=== PATIENT | male | born 1980 | race Hispanic/Latino ===

== ENCOUNTER 2016-10-08 03:25 | Emergency (ER) | payer MEDICAID ==
[2016-10-08 03:40] VITALS: BP 130/72; PULSE 90; TEMP 98.9; O2SAT 98
[2016-10-08] MEDS ORDERED: Sodium Chloride 0.9% 500 ML IV ONE (04:02)
[2016-10-08 04:54] LABS: BASO # 0.1 K/uL (0.0-0.2); BASO % 0.5 % (0.0-2.0); EOS # 0.1 K/uL (0.0-0.7); EOS % 0.7 % (0.0-4.0); HEMOGLOBIN 13.7 g/dL (12.0-18.0); MEAN CELL VOLUME 89.2 fL (80.0-94.0); MEAN CORPUSCULAR HEMOGLOBIN 29.8 pg (27.0-31.0); MEAN CORPUSCULAR HGB CONC 33.4 g/dL (33.0-37.0); MEAN PLATELET VOLUME 8.3 fL (7.2-11.7); MONO # 1.1 K/uL (0.0-0.8); MONO % 7.3 % (0.0-10.0); NEUT # 12.5 K/uL (1.8-7.0); NEUT % 84.5 % (50.0-75.0); PLATELET COUNT 197 K/uL (130-400); RBC 4.61 Mil/uL (4.40-5.90); RED CELL DISTRIBUTION WIDTH 12.9 % (11.5-14.5); WHITE BLOOD COUNT 14.8 K/uL (4.8-10.8)
[2016-10-08 04:58] LABS: ALBUMIN 3.7 g/dL (3.5-5.0)
[2016-10-08 05:00] LABS: GFR AFRICAN-AMERICAN > 60; GFR NON-AFRICAN AMERICAN > 60
[2016-10-08 05:01] LABS: ALB/GLOB RATIO 1.2 (1.0-2.1); ALT/SGPT 26 U/L (21-72); AST/SGOT 34 U/L (17-59); BLOOD UREA NITROGEN 14 mg/dL (9-20)
[2016-10-08 05:02] LABS: CALCIUM 8.2 mg/dl (8.6-10.4)
--- NOTE | 2016-10-08 05:03 | C.PDOC ---
History Of Present Illness 35 year old male presents to the ED with complaints of dizziness and feeling hot just prior to arrival. Patient states apartment does not have an air conditioner and despite opening windows, still feels lightheaded which prompted visit. He denies any palpitations, chest pain, or SOB. Time Seen by Provider: 10/08/16 03:45 Chief Complaint (Nursing): Dizziness/Lightheaded History Per: Patient History/Exam Limitations: no limitations Onset/Duration Of Symptoms: Hrs Current Symptoms Are (Timing): Still Present Fall Associated With With Symptoms: No Recent travel outside of the [place]: No Past Medical History Reviewed: Historical Data, Nursing Documentation, Vital Signs Vital Signs: Last Vital Signs Temp 98.9 F 10/08/16 03:34 Pulse 90 10/08/16 03:34 Resp 16 10/08/16 03:34 BP 130/72 10/08/16 03:34 Pulse Ox 98 10/08/16 06:43 - Medical History PMH: Anxiety, Bipolar Disorder - [facility] Procedures GROUP PSYCHOTHERAPY (09/12/15) INDIVID PSYCHOTHERAP NEC (04/29/13) INDIVIDUAL PSYCHOTHERAPY, BEHAVIORAL (09/12/15) INJECT/INFUSE NEC (01/22/14) NEUROLEPTIC THERAPY (04/29/13) OTHER GROUP THERAPY (04/29/13) Family History: States: Unknown Family Hx - Social History Hx Tobacco Use: No Hx Alcohol Use: No Hx Substance Use: No - Immunization History Hx Tetanus Toxoid Vaccination: No Hx Influenza Vaccination: No Hx Pneumococcal Vaccination: No Review Of Systems Constitutional: Negative for: Fever, Chills Cardiovascular: Negative for: Chest Pain, Palpitations Respiratory: Negative for: Cough, Shortness of Breath Gastrointestinal: Negative for: Nausea, Vomiting, Abdominal Pain, Diarrhea Neurological: Positive for: Dizziness, Other (lightheadedness ) Physical Exam - Physical Exam Appears: Non-toxic, No Acute Distress, Other (patient appears drowsy ) Skin: Warm, Dry Eye(s): bilateral: Normal Inspection, PERRL, EOMI Ear(s): Bilateral: Normal Oral Mucosa: Moist Throat: Erythema, No Exudate Neck: Supple Chest: Symmetrical, No Deformity Cardiovascular: Rhythm Regular Respiratory: Normal Breath Sounds, No Rales, No Rhonchi, No Wheezing Gastrointestinal/Abdominal: Soft, No Tenderness, No Distention, No Guarding, No Rebound Neurological/Psych: Oriented x3 ED Course And Treatment - Laboratory Results Result Diagrams: 10/08/16 04:40 10/08/16 04:40 O2 Sat by Pulse Oximetry: 98 (room air ) Pulse Ox Interpretation: Normal Progress Note: CBC and CMP were ordered. Patient hydrated with fluids. Patient is resting comfortably and in no acute distresss upon re-evaluation.Feels better. Labs reviewed with slightly elevated WBC, but pt has no URI or UTI sx, sore throat or abd pain. Pt instructed to follow up in clinic and return precautions were given Reassessment Condition: Improved Disposition Counseled Patient/Family Regarding: Diagnosis, Need For Followup - Disposition Referrals: at [facility] [Outside] Disposition: HOME/ ROUTINE Disposition Time: 06:33 Condition: STABLE Additional Instructions: PLease keep cool , Buy a fan or AC unit Drink fluids/ cold water Return to ER if worse Instructions: Dizziness (ED) - Clinical Impression Clinical Impression: Dizziness - Scribe Statement The provider has reviewed the documentation as recorded by the Scribmickey Ordaz All medical record entries made by the Tamiribmickey were at my direction and personally dictated by me. I have reviewed the chart and agree that the record accurately reflects my personal performance of the history, physical exam, medical decision making, and the department course for this patient. I have also personally directed, reviewed, and agree with the discharge instructions and disposition.
[2016-10-08 06:39] LABS: BANDS 1 % (0-2); EOSINOPHIL 1 % (0-4); LYMPHOCYTE 7 % (20-40); MONOCYTE 9 % (0-10); NEUTROPHIL 82 % (50-75); PLATELET ESTIMATE NORMAL (NORMAL); TOTAL CELLS COUNTED 100
[2016-10-08 06:47] VITALS: RESP 17
== END 2016-10-08 06:47 | disposition home or self-care (01) ==
LOC: C.ER 03:25
DX: R42 Dizziness and giddiness (principal)
CPT/HCPCS: 80053; 85025; 99285; J7040

== ENCOUNTER 2016-12-19 15:55 | Emergency (ER) | payer MEDICAID, OTHER ==
[2016-12-19 16:12] VITALS: BP 129/84; PULSE 90; RESP 18; TEMP 98.9; O2SAT 98
--- NOTE | 2016-12-19 16:33 | C.PDOC ---
History Of Present Illness 35 y/o male presents to ED requesting refill of Abilify and [place]. Pt states that he recently moved to [place], and has not followed up with a psychiatrist yet. Notes that he has not taken his meds for the last 2 weeks. Pt states that he is not able to sleep well at night. Denies SI, HI, or any physical complaints. Time Seen by Provider: 12/19/16 16:30 Chief Complaint (Nursing): Med Refill History Per: Patient History/Exam Limitations: no limitations Onset/Duration Of Symptoms: Days Current Symptoms Are (Timing): Still Present Severity: None Pain Scale Rating Of: 0 Recent travel outside of the [place]: No Additional History Per: Patient Past Medical History Reviewed: Historical Data, Nursing Documentation, Vital Signs Vital Signs: Last Vital Signs Temp 98.9 F 12/19/16 16:08 Pulse 90 12/19/16 16:08 Resp 18 12/19/16 16:08 BP 129/84 12/19/16 16:08 Pulse Ox 98 12/19/16 20:53 - Medical History PMH: Anxiety, Bipolar Disorder - [facility] Procedures GROUP PSYCHOTHERAPY (09/12/15) INDIVID PSYCHOTHERAP NEC (04/29/13) INDIVIDUAL PSYCHOTHERAPY, BEHAVIORAL (09/12/15) INJECT/INFUSE NEC (01/22/14) NEUROLEPTIC THERAPY (04/29/13) OTHER GROUP THERAPY (04/29/13) Family History: States: Unknown Family Hx - Social History Hx Tobacco Use: No Hx Alcohol Use: No Hx Substance Use: No - Immunization History Hx Tetanus Toxoid Vaccination: No Hx Influenza Vaccination: No Hx Pneumococcal Vaccination: No Review Of Systems Except As Marked, All Systems Reviewed And Found Negative. Constitutional: Positive for: Other (not able to sleep). Negative for: Fever, Chills Cardiovascular: Negative for: Chest Pain, Palpitations Respiratory: Negative for: Shortness of Breath Psych: Negative for: Suicidal ideation Physical Exam - Physical Exam Appears: Non-toxic, No Acute Distress Skin: Normal Color, Warm, Dry, No Rash Head: Atraumatic, Normacephalic Eye(s): bilateral: Normal Inspection, EOMI Nose: Normal Oral Mucosa: Moist Neck: Supple Chest: Symmetrical Cardiovascular: Rhythm Regular Respiratory: Normal Breath Sounds, No Accessory Muscle Use Extremity: Normal ROM Neurological/Psych: Oriented x3, Normal Speech ED Course And Treatment O2 Sat by Pulse Oximetry: 98 (on RA) Pulse Ox Interpretation: Normal 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 Mohan who states pt does not meet admission requirement. Elicia spoke with [facility]i who suggested pt to report there after being discharged for assessment. Case discussed with Dr Chung, agree ailinon plan and discharge. Disposition - Disposition Disposition: HOME/ ROUTINE Disposition Time: 16:40 Condition: STABLE Additional Instructions: Follow up with mali directly after discharge DO NOT USE ALCOHOL, TOBACCO OR OTHER ILLICIT SUBSTANCES CALL 911 IF ANY SUICIDAL OR HOMICIDAL THOUGHTS FOLLOW UP WITH AFTERCARE APPOINTMENTS DIRECTED SEE YOUR PRIMARY CARE DOCTOR FOR ANY ONGOING MEDICAL NEEDS Instructions: Anxiety (ED) Forms: [employer] (Swedish) - Clinical Impression Clinical Impression: Anxiety - PA / EAP SPECIALIST / Resident Statement MD/DO has reviewed & agrees with the documentation as recorded. - Scribe Statement The provider has reviewed the documentation as recorded by the Scribe Harmony Emmanuel All medical record entries made by the Scribe were at my direction and personally dictated by me. I have reviewed the chart and agree that the record accurately reflects my personal performance of the history, physical exam, medical decision making, and the department course for this patient. I have also personally directed, reviewed, and agree with the discharge instructions and disposition.
== END 2016-12-19 16:52 | disposition home or self-care (01) ==
LOC: C.ER 15:55
DX: F41.9 Anxiety disorder, unspecified (principal)

== ENCOUNTER 2016-12-20 00:15 | Emergency (ER) | payer OTHER ==
[2016-12-20 00:23] VITALS: BP 136/93; PULSE 103; RESP 20; TEMP 99.1; O2SAT 96
--- NOTE | 2016-12-20 00:26 | C.PDOC ---
History Of Present Illness 35 y/o male presents to the ED requesting a refill for his psychiatric medications. Patient states he is prescribed 30mg Abilify and 450mg [place] to take daily. Patient is scheduled for an appointment with his doctor this weekend , but does not wish to wait that long. He denies suicidal/homicidal ideation and has no physical complaints at this time. Time Seen by Provider: 12/20/16 00:21 Chief Complaint (Nursing): Psychiatric Evaluation History Per: Patient History/Exam Limitations: no limitations Onset/Duration Of Symptoms: Hrs Current Symptoms Are (Timing): Still Present Suicide/Self Injury Attempted (Context): None Modifying Factor(s): None Associated Symptoms: denies: Suicidal Thoughts, Suicidal Plan Involuntary Hold By: None Recent travel outside of the [place]: No Additional History Per: Patient Past Medical History Reviewed: Historical Data, Nursing Documentation, Vital Signs Vital Signs: Last Vital Signs Temp 99.1 F 12/20/16 00:19 Pulse 103 H 12/20/16 00:19 Resp 20 12/20/16 00:19 BP 136/93 H 12/20/16 00:19 Pulse Ox 96 12/20/16 01:32 - Medical History PMH: Anxiety, Bipolar Disorder Surgical History: No Surg Hx - [facility] Procedures GROUP PSYCHOTHERAPY (09/12/15) INDIVID PSYCHOTHERAP NEC (04/29/13) INDIVIDUAL PSYCHOTHERAPY, BEHAVIORAL (09/12/15) INJECT/INFUSE NEC (01/22/14) NEUROLEPTIC THERAPY (04/29/13) OTHER GROUP THERAPY (04/29/13) Family History: States: Unknown Family Hx - Social History Hx Tobacco Use: No Hx Alcohol Use: No Hx Substance Use: No - Immunization History Hx Tetanus Toxoid Vaccination: No Hx Influenza Vaccination: No Hx Pneumococcal Vaccination: No Review Of Systems Constitutional: Negative for: Fever, Chills Cardiovascular: Negative for: Chest Pain Respiratory: Negative for: Cough, Shortness of Breath Gastrointestinal: Negative for: Nausea, Vomiting, Abdominal Pain, Diarrhea Neurological: Negative for: Weakness, Numbness Psych: Positive for: Other. Negative for: Suicidal ideation (requesting refill for psychiatric medications ) Physical Exam - Physical Exam Appears: Non-toxic, No Acute Distress Skin: Normal Color, Warm, Dry Head: Atraumatic, Normacephalic Eye(s): bilateral: Normal Inspection Oral Mucosa: Moist Neck: Supple Chest: Symmetrical, No Deformity, No Tenderness Cardiovascular: Rhythm Regular Respiratory: Normal Breath Sounds Extremity: Normal ROM, Capillary Refill (less than 2 seconds ) Neurological/Psych: Oriented x3, Normal Speech, Normal Cognition Gait: Steady ED Course And Treatment O2 Sat by Pulse Oximetry: 96 (on RA) Pulse Ox Interpretation: Normal Disposition - Disposition Referrals: [facility] [Outside] Disposition: HOME/ ROUTINE Disposition Time: 00:50 Condition: GOOD Prescriptions: Aripiprazole [Abilify] 30 mg PO DAILY #7 tablet [place] Carbonate [[place] Carbonate 150MG] 450 mg PO DAILY #21 cap Forms: General Discharge Instructions, [facility] (Mauritian) - Clinical Impression Clinical Impression: Medication refill - Scribe Statement The provider has reviewed the documentation as recorded by the Scribe (Lisseth Emmanuel) Provider Attestation: All medical record entries made by the Scribe were at my direction and personally dictated by me. I have reviewed the chart and agree that the record accurately reflects my personal performance of the history, physical exam, medical decision making, and the department course for this patient. I have also personally directed, reviewed, and agree with the discharge instructions and disposition.
== END 2016-12-20 00:53 | disposition home or self-care (01) ==
LOC: C.ER 00:15
DX: Z76.0 Encounter for issue of repeat prescription (principal)

== ENCOUNTER 2017-03-27 02:38 | Emergency (ER) | payer OTHER ==
[2017-03-27 02:48] VITALS: BP 144/89; PULSE 100; RESP 20; TEMP 98; O2SAT 95
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
[2017-03-27] MEDS ORDERED: Bacitracin 500 Units/gm Oint Foilpak UD TOP ONE (03:16)
[2017-03-27] MEDS ORDERED: Bacitracin 500 Units/gm Oint Foilpak UD ONE (03:16)
== END 2017-03-27 03:38 | disposition home or self-care (01) ==
LOC: C.ER 02:38
DX: S60.511A Abrasion of right hand, initial encounter (principal); S60.221A Contusion of right hand, initial encounter; W22.8XXA Striking against or struck by other objects, initial encounter

== ENCOUNTER 2017-07-21 21:16 | Emergency (ER) | payer OTHER ==
[2017-07-21 21:22] VITALS: BP 133/83; PULSE 121; RESP 20; TEMP 98.3; O2SAT 97
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
--- NOTE | 2017-07-22 09:38 | RAD ---
PROCEDURE: Right Hand Radiographs. HISTORY: r/o fx COMPARISON: None. FINDINGS: BONES: Normal. No fracture. JOINTS: Normal. No osteoarthritic changes. SOFT TISSUES: Normal. OTHER FINDINGS: None. IMPRESSION: No definite evidence of acute fracture or dislocation.
== END 2017-07-21 23:57 | disposition left against medical advice (07) ==
LOC: C.ER 21:16
DX: S60.221A Contusion of right hand, initial encounter (principal); W22.01XA Walked into wall, initial encounter; Y92.9 Unspecified place or not applicable

== ENCOUNTER 2018-06-14 17:48 | Emergency (ER) | payer MEDICAID, OTHER ==
[2018-06-14 17:49] VITALS: BMI 23.6
[2018-06-14 17:56] VITALS: RESP 18
--- NOTE | 2018-06-14 19:05 | C.PDOC ---
History Of Present Illness 37 year old male is brought to the ED by EMS for psych evaluation. Patient states he has not been eating for the past several days, today he was arguing while on the phone with his aunt. Patient became angry, threw his phone and brok e it. Patient's aunt became concerned and called EMS. Patient has a history of bipolar disorder, reports he currently lived at a [facility]pc and is compliant with his medication. Patient denies SI/HI, hallucinations, substance abuse, injury, fall, trauma. Time Seen by Provider: 06/14/18 19:02 Chief Complaint (Nursing): Psychiatric Evaluation History Per: Patient, EMS History/Exam Limitations: no limitations Onset/Duration Of Symptoms: Hrs Current Symptoms Are (Timing): Still Present Suicide/Self Injury Attempted (Context): None Modifying Factor(s): None Associated Symptoms: Anger. denies: Depression, Suicidal Thoughts, Suicidal Plan Recent travel outside of the [place]: No Additional History Per: Patient, EMS Past Medical History Reviewed: Historical Data, Nursing Documentation, Vital Signs Vital Signs: Last Vital Signs Temp 98.8 F 06/14/18 17:53 Pulse 110 H 06/14/18 17:53 Resp 18 06/14/18 17:53 BP 137/87 06/14/18 17:53 Pulse Ox 97 06/14/18 17:53 - Medical History PMH: Anxiety, Bipolar Disorder Denies: Diabetes, Hepatitis, HIV, HTN, Chronic Kidney Disease, Seizures, Sexually Transmitted Disease Surgical History: No Surg Hx - [facility] Procedures GROUP PSYCHOTHERAPY (09/12/15) INDIVID PSYCHOTHERAP NEC (04/29/13) INDIVIDUAL PSYCHOTHERAPY, BEHAVIORAL (09/12/15) INJECT/INFUSE NEC (01/22/14) MEDICATION MANAGEMENT (09/30/17) NEUROLEPTIC THERAPY (04/29/13) OTHER GROUP THERAPY (04/29/13) Family History: States: Unknown Family Hx - Social History Hx Tobacco Use: No Hx Alcohol Use: No Hx Substance Use: No - Immunization History Hx Tetanus Toxoid Vaccination: Yes Hx Influenza Vaccination: Yes Hx Pneumococcal Vaccination: No Review Of Systems Constitutional: Negative for: Fever, Chills Eyes: Negative for: Vision Change Cardiovascular: Negative for: Chest Pain Respiratory: Negative for: Shortness of Breath Gastrointestinal: Negative for: Nausea, Vomiting, Abdominal Pain Skin: Negative for: Rash Psych: Negative for: Depression, Suicidal ideation Physical Exam - Physical Exam Appears: Non-toxic, Other (bizare affect) Skin: Normal Color, Warm, Dry Head: Atraumatic, Normacephalic Eye(s): bilateral: Normal Inspection Neck: Normal ROM, Supple Chest: Symmetrical Cardiovascular: Rhythm Regular Respiratory: Normal Breath Sounds, No Rales, No Rhonchi, No Wheezing Gastrointestinal/Abdominal: Soft, No Tenderness, No Guarding, No Rebound Extremity: Normal ROM, No Tenderness, No Swelling Neurological/Psych: Oriented x3, Normal Speech, Normal Cognition Gait: Steady ED Course And Treatment - Laboratory Results Result Diagrams: 06/14/18 19:19 06/14/18 19:19 O2 Sat by Pulse Oximetry: 97 (ON RA) Pulse Ox Interpretation: Normal Progress Note: Patient was calm, cooperative while in the ED. Patient was disch arged home. Disposition Counseled Patient/Family Regarding: Diagnosis, Need For Followup - Disposition Referrals: [facility] [Outside] Disposition: HOME/ ROUTINE Disposition Time: 20:00 Condition: STABLE Additional Instructions: FOLLOW UP WITH YOUR DOCTOR IN 1-2 DAYS RETURN TO ER IF YOU HAVE ANY CONCERNING SYMPTOMS Instructions: Bipolar Disorder (DC) Forms: [employer] (Peruvian) Print Language: [place] - Clinical Impression Clinical Impression: Bipolar disorder - Scribe Statement The provider has reviewed the documentation as recorded by the Scribe Law Ponce All medical record entries made by the Scribe were at my direction and p ersonally dictated by me. I have reviewed the chart and agree that the record accurately reflects my personal performance of the history, physical exam, medical decision making, and the department course for this patient. I have also personally directed, reviewed, and agree with the discharge instructions and disposition.
[2018-06-14 19:23] LABS: BASO # 0.1 K/uL (0.0-0.2); BASO % 0.6 % (0.0-2.0); EOS % 0.2 % (0.0-4.0); HEMOGLOBIN 15.2 g/dL (12.0-18.0); LYMPH # 1.3 K/uL (1.0-4.3); LYMPH % 11.7 % (20.0-40.0); MEAN CELL VOLUME 90.5 fL (80.0-94.0); MEAN CORPUSCULAR HEMOGLOBIN 29.9 pg (27.0-31.0); MEAN PLATELET VOLUME 7.8 fL (7.2-11.7); MONO # 0.7 K/uL (0.0-0.8); MONO % 6.3 % (0.0-10.0); NEUT # 9.3 K/uL (1.8-7.0); NEUT % 81.2 % (50.0-75.0); RBC 5.07 Mil/uL (4.40-5.90); RED CELL DISTRIBUTION WIDTH 13.4 % (11.5-14.5); WHITE BLOOD COUNT 11.5 K/uL (4.8-10.8)
[2018-06-14 19:29] LABS: SQUAMOUS EPITHIAL < 1 /hpf (0-5); URINE BILIRUBIN NEGATIVE (NEGATIVE); URINE BLOOD NEGATIVE (NEGATIVE); URINE CLARITY Clear (Clear); URINE COLOR Yellow (YELLOW); URINE GLUCOSE (UA) NORMAL (Normal); URINE HYALINE CAST 0-2 /lpf (0-2); URINE LEUKOCYTE ESTERASE NEG Leu/uL (Negative); URINE PROTEIN 1+ mg/dL (NEGATIVE); URINE UROBILINOGEN NORMAL mg/dL (0.2-1.0)
[2018-06-14 19:34] LABS: ALB/GLOB RATIO 1.6 (1.0-2.1); ALBUMIN 4.7 g/dL (3.5-5.0); ALT/SGPT 47 U/L (21-72); AST/SGOT 39 U/L (17-59); BLOOD UREA NITROGEN 13 mg/dL (9-20); CALCIUM 9.1 mg/dl (8.6-10.4); GFR NON-AFRICAN AMERICAN > 60
[2018-06-14 19:42] LABS: BARBITURATES, UR NEGATIVE (NEGATIVE); BENZODIAZEPINES, UR NEGATIVE (NEGATIVE); OPIATES, UR NEGATIVE (NEGATIVE); PHENCYCLIDINE, UR NEGATIVE (NEGATIVE)
[2018-06-14 20:08] VITALS: BP 132/78; PULSE 96; TEMP 98.2
[2018-06-14 21:06] VITALS: O2SAT 97
== END 2018-06-14 20:09 | disposition home or self-care (01) ==
LOC: C.ER 17:48
DX: F31.9 Bipolar disorder, unspecified (principal)